=== PATIENT | male | born 1985 | race Two or more races ===

== ENCOUNTER 2025-04-14 13:54 | Emergency (ER) | payer OTHER ==
[~2025-04-14] VITALS: Ht 182.9 cm; Wt 85.8 kg
== END 2025-04-14 17:50 | disposition home or self-care (01) ==
LOC: ER 13:54
DX: S60.221A Contusion of right hand, initial encounter (principal); X58.XXXA Exposure to other specified factors, initial encounter; Y93.89 Activity, other specified; Y92.89 Other specified places as the place of occurrence of the external cause